=== PATIENT | male | born 1995 | race Caucasian/White ===

== ENCOUNTER 2024-09-30 12:27 | Emergency (ER) | payer BC ==
[~2024-09-30] VITALS: Ht 195.6 cm; Wt 148.3 kg
[~2024-09-30 12:27] MED LIST: NO HOME MEDS
[2024-09-30] MEDS ORDERED: SULF1TAB49 PO (14:24)
[2024-09-30] MEDS ORDERED: CHLO118L3 TOP (14:24)
[2024-09-30 14:38] VITALS: BP 156/80; PULSE 79; RESP 17; TEMP 98.6; O2SAT 99
== END 2024-09-30 14:39 | disposition home or self-care (01) ==
LOC: ER 12:27
DX: L02.31 Cutaneous abscess of buttock (principal)
CPT/HCPCS: 99283

== ENCOUNTER 2024-10-19 13:19 | Inpatient (IN) | payer BC ==
[2024-10-19] VITALS (15 sets, daily range): BP systolic 95–158; BP diastolic 55–97; PULSE 72–118; RESP 12–30; TEMP 97.5; O2SAT 89–99
[~2024-10-19] VITALS: Ht 195.6 cm; Wt 171.8 kg
[~2024-10-19 13:19] MED LIST changes: +CHLO118L3 TOP
[2024-10-19 14:33] LABS: BASOPHILS # (AUTO) 0.1 X10'3 (0-0.2); BASOPHILS % (AUTO) 0.5 % (0-1); EOSINOPHILS # (AUTO) 0.1 X10'3 (0-0.9); EOSINOPHILS % (AUTO) 0.3 % (0-6); HEMATOCRIT 46.9 % (42.0-52.0); HEMOGLOBIN 16.2 g/dl (14.0-17.9); LYMPHOCYTES # (AUTO) 2.4 X10'3 (1.1-4.8); LYMPHOCYTES % (AUTO) 12.2 % (21-51); MEAN CORPUSCULAR HEMOGLOBIN 28.9 PG (27.0-31.0); MEAN CORPUSCULAR HGB CONC 34.4 g/dL (33.0-36.5); MEAN PLATELET VOLUME 7.7 FL (7.4-10.4); MONOCYTES # (AUTO) 1.7 X10'3 (0-0.9); MONOCYTES % (AUTO) 8.5 % (2-12); NEUTROPHILS # (AUTO) 15.4 X10'3 (1.8-7.7); NEUTROPHILS % (AUTO) 78.5 % (42-75); PLATELET COUNT 349 X10'3 (140-440); RED BLOOD COUNT 5.59 X10'6 (4.70-6.10); WHITE BLOOD COUNT 19.6 X10'3 (4.5-11.0)
[2024-10-19 14:41] LABS: ALBUMIN 3.9 G/DL (3.4-5.0); ANION GAP 13 (8-16); BLOOD UREA NITROGEN 9 MG/DL (7-18); BUN/CREATININE RATIO 11.3 (10.0-20.0); CALCIUM 8.8 MG/DL (8.5-10.1); CHLORIDE 98 MMOL/L (99-107); GLUCOSE 361 MG/DL (70-104); POTASSIUM 4.1 MMOL/L (3.5-5.1); SODIUM 133 MMOL/L (135-145); TOTAL CARBON DIOXIDE 22.5 MMOL/L (24-32); eCRCL 169 ML/MIN; eGFR > 90 ML/MIN
[2024-10-19] MEDS: acetaminophen 325mg tablet PO ONE (14:50)
[2024-10-19] MEDS: acetaminophen 1,000mg/100ml IV 100 ML IV ONE (14:55)
[2024-10-19] MEDS ORDERED: iohexol 300mg/ml 100ml inj. ONE (15:21)
[2024-10-19] MEDS: piperacillin/tazo 3.375gm/50ml 50 ML IV ONE (16:14)
[2024-10-19] MEDS: normal saline 1000ML IV soln IV ONE (16:21)
[2024-10-19] MEDS: vancomycin/NS 1 GM ADD-VANTAGE 250 ML X 1 DOSE IV ONE (17:02)
[2024-10-19] MEDS ORDERED: ondansetron/PF 4mg/2ml inj IV PRN (17:10)
[2024-10-19] MEDS ORDERED: morphine 2 MG/ML inj. syringe IV PRN ×2 (17:10→19:55)
[2024-10-19] MEDS ORDERED: acetaminophen 325mg tablet PO PRN ×2 (17:10)
[2024-10-19] MEDS ORDERED: mag hydrox/Alum hydrox/simeth 30ml oral suspension PO PRN (17:10)
[2024-10-19 17:56] LABS: HEMOGLOBIN A1C 10.5 % (4.5-6.2)
[2024-10-19 18:18] LABS: PRO BRAIN NATRIURETIC PEPTIDE 34 PG/ML (0-125)
[2024-10-19] MEDS ORDERED: sevoflurane 250ml liquid IH ONE (18:18)
[2024-10-19] MEDS ORDERED: fentaNYL/PF 50MCG/1 ML 2ML syringe ONE ×2 (18:20→18:39)
[2024-10-19] MEDS ORDERED: midazolam 1 mg/ML 2ml injection ONE (18:22)
[2024-10-19] MEDS ORDERED: propofol inj 20 ML IV ONE ×2 (19:10)
[2024-10-19] MEDS ORDERED: naloxone 0.4 mg/ml inj IV PRN (19:20)
[2024-10-19] MEDS ORDERED: HYDROmorphone inj. 0.5 MG/0.5 ML DISP.SYRIN IV PRN (19:25)
[2024-10-19] MEDS: morphine 4 MG/ML inj SYRINge IV PRN (20:00)
[2024-10-19] MEDS ORDERED: VANCOMYCIN 1GM 200ML H20 (PEG) 200 ML IV SCH (20:00)
[2024-10-19] MEDS: docusate sod 100mg capsule PO SCH (20:46)
[2024-10-19] MEDS: normal saline 1000ml 1,000 ML IV SCH (22:21)
[2024-10-19] MEDS: HYDROcodone/acetaminophen 5mg/325mg tablet PO PRN (22:31)
[2024-10-19] MEDS ORDERED: dextrose 50%-water 50ml dispensing syringe IV PRN ×2 (23:05)
[2024-10-19] MEDS ORDERED: glucagon, human recombinant 1mg kit SUBCUT PRN (23:05)
[2024-10-19] MEDS ORDERED: DEXTROSE 15 GM of carb/4 tabs (each vial/BOTTLE has 4 tablets) PO PRN ×2 (23:05)
[2024-10-20] VITALS (8 sets, daily range): BP systolic 128–143; BP diastolic 74–81; PULSE 100–112; RESP 13–25; TEMP 97.4–98.5; O2SAT 95–98
[2024-10-20] MEDS: vancomycin/NS 1 GM ADD-VANTAGE 250 ML IV SCH (00:21)
[2024-10-20] MEDS: insulin glargine (Lantus) pen - multi-dose SQ SCH ×2 (00:35→22:12)
[2024-10-20] MEDS: piperacillin/tazo 4.5gm/100ml 100 ML IV SCH (02:18)
[2024-10-20 07:02] LABS: BASOPHILS # (AUTO) 0.1 X10'3 (0-0.2); BASOPHILS % (AUTO) 0.3 % (0-1); EOSINOPHILS % (AUTO) 0.1 % (0-6); HEMATOCRIT 38.1 % (42.0-52.0); HEMOGLOBIN 13.1 g/dl (14.0-17.9); LYMPHOCYTES # (AUTO) 2.9 X10'3 (1.1-4.8); LYMPHOCYTES % (AUTO) 13.7 % (21-51); MEAN CORPUSCULAR HEMOGLOBIN 28.8 PG (27.0-31.0); MEAN CORPUSCULAR HGB CONC 34.4 g/dL (33.0-36.5); MEAN CORPUSCULAR VOLUME 83.8 FL (78-98); MEAN PLATELET VOLUME 7.9 FL (7.4-10.4); MONOCYTES # (AUTO) 2.1 X10'3 (0-0.9); MONOCYTES % (AUTO) 9.7 % (2-12); NEUTROPHILS # (AUTO) 16.4 X10'3 (1.8-7.7); NEUTROPHILS % (AUTO) 76.2 % (42-75); PLATELET COUNT 303 X10'3 (140-440); RED BLOOD COUNT 4.55 X10'6 (4.70-6.10); RED CELL DISTRIBUTION WIDTH 12.8 % (11.5-14.5); WHITE BLOOD COUNT 21.5 X10'3 (4.5-11.0)
[2024-10-20 07:06] LABS: ALBUMIN 2.9 G/DL (3.4-5.0); ANION GAP 11 (8-16); BLOOD UREA NITROGEN 10 MG/DL (7-18); BUN/CREATININE RATIO 12.5 (10.0-20.0); CALCIUM 8.1 MG/DL (8.5-10.1); CHLORIDE 100 MMOL/L (99-107); GLUCOSE 267 MG/DL (70-104); POTASSIUM 3.8 MMOL/L (3.5-5.1); SODIUM 134 MMOL/L (135-145); TOTAL CARBON DIOXIDE 22.8 MMOL/L (24-32); eCRCL 169 ML/MIN; eGFR > 90 ML/MIN
[2024-10-20] MEDS: INSULIN LISPRO 100 UNIT/ML INSULN.PEN MULTI-DOSE SQ SCH ×2 (08:33→16:52)
[2024-10-20] MEDS: FLU VACC TS2024-25(6MOS UP)/PF 45 MCG/0.5 ML SYRINGE IMVAC ONE (10:57)
[2024-10-20] MEDS: HYDROcodone/acetaminophen 10/325mg tab PO PRN (11:08)
[2024-10-20] MEDS ORDERED: lactose-reduced food (Ensure High Protein) 237ml bottle PO SCH (12:30)
[2024-10-20] MEDS ORDERED: DEXTROSE 15 GM of carb/4 tabs (each vial/BOTTLE has 4 tablets) PO PRN ×2 (13:40)
[2024-10-20] MEDS ORDERED: glucagon, human recombinant 1mg kit SUBCUT PRN (13:40)
[2024-10-20] MEDS ORDERED: dextrose 50%-water 50ml dispensing syringe IV PRN ×2 (13:40)
[2024-10-20] MEDS: morphine 2 MG/ML inj. syringe IV PRN (15:42)
[2024-10-20] MEDS: magnesium hydroxide 30ml (MOM) UD suspension PO PRN (15:46)
[2024-10-20] MEDS: VANCOMYCIN LEVEL IV ONE (16:42)
[2024-10-20] MEDS: JUVEN Smoothie Arginine/Glut./Ca2+Bmb (Juven 19.3pkt) 240ml cup PO SCH (18:13)
[2024-10-20] MEDS: lactose-reduced food (Ensure High Protein) 237ml bottle PO SCH (18:30)
[2024-10-21] VITALS (8 sets, daily range): BP systolic 130–155; BP diastolic 74–96; PULSE 89–103; RESP 16–24; TEMP 96.6–97.8; O2SAT 95–99
[2024-10-21] MEDS: Dakins solution (1/4 strength) 473ml solution TP SCH (00:09)
[2024-10-21] MEDS: vancomycin/NS 1 GM ADD-VANTAGE 250 ML IV SCH (07:00)
[2024-10-21 07:25] LABS: BASOPHILS % (AUTO) 0.2 % (0-1); EOSINOPHILS # (AUTO) 0.1 X10'3 (0-0.9); HEMATOCRIT 35.9 % (42.0-52.0); HEMOGLOBIN 12.3 g/dl (14.0-17.9); LYMPHOCYTES # (AUTO) 2.7 X10'3 (1.1-4.8); LYMPHOCYTES % (AUTO) 20.9 % (21-51); MEAN CORPUSCULAR HEMOGLOBIN 29.3 PG (27.0-31.0); MEAN CORPUSCULAR HGB CONC 34.1 g/dL (33.0-36.5); MEAN CORPUSCULAR VOLUME 85.8 FL (78-98); MEAN PLATELET VOLUME 7.6 FL (7.4-10.4); MONOCYTES # (AUTO) 1.4 X10'3 (0-0.9); MONOCYTES % (AUTO) 10.6 % (2-12); NEUTROPHILS # (AUTO) 8.8 X10'3 (1.8-7.7); NEUTROPHILS % (AUTO) 67.3 % (42-75); PLATELET COUNT 304 X10'3 (140-440); RED BLOOD COUNT 4.19 X10'6 (4.70-6.10); RED CELL DISTRIBUTION WIDTH 12.8 % (11.5-14.5); WHITE BLOOD COUNT 13.1 X10'3 (4.5-11.0)
[2024-10-21 07:55] LABS: ALBUMIN 2.5 G/DL (3.4-5.0); ANION GAP 12 (8-16); BLOOD UREA NITROGEN 9 MG/DL (7-18); CALCIUM 7.8 MG/DL (8.5-10.1); CHLORIDE 101 MMOL/L (99-107); GLUCOSE 206 MG/DL (70-104); POTASSIUM 3.7 MMOL/L (3.5-5.1); SODIUM 133 MMOL/L (135-145); TOTAL CARBON DIOXIDE 20.4 MMOL/L (24-32); eCRCL 225 ML/MIN; eGFR > 90 ML/MIN
[2024-10-21] MEDS: insulin glargine (Lantus) pen - multi-dose SQ SCH (23:12)
[2024-10-22] VITALS (7 sets, daily range): BP systolic 118–139; BP diastolic 71–94; PULSE 81–96; RESP 11–28; TEMP 97.1–99.3; O2SAT 97–100
[2024-10-22] MEDS: VANCOMYCIN LEVEL IV ONE (06:30)
[2024-10-22 07:48] LABS: BASOPHILS % (AUTO) 0.5 % (0-1); EOSINOPHILS # (AUTO) 0.2 X10'3 (0-0.9); EOSINOPHILS % (AUTO) 1.7 % (0-6); LYMPHOCYTES # (AUTO) 2.3 X10'3 (1.1-4.8); LYMPHOCYTES % (AUTO) 25.2 % (21-51); MEAN CORPUSCULAR HEMOGLOBIN 29.7 PG (27.0-31.0); MEAN CORPUSCULAR HGB CONC 35.2 g/dL (33.0-36.5); MEAN CORPUSCULAR VOLUME 84.5 FL (78-98); MEAN PLATELET VOLUME 7.2 FL (7.4-10.4); MONOCYTES # (AUTO) 0.8 X10'3 (0-0.9); MONOCYTES % (AUTO) 9.3 % (2-12); NEUTROPHILS # (AUTO) 5.8 X10'3 (1.8-7.7); NEUTROPHILS % (AUTO) 63.3 % (42-75); PLATELET COUNT 334 X10'3 (140-440); RED BLOOD COUNT 4.03 X10'6 (4.70-6.10); RED CELL DISTRIBUTION WIDTH 12.7 % (11.5-14.5); WHITE BLOOD COUNT 9.1 X10'3 (4.5-11.0)
[2024-10-22 07:56] LABS: ALBUMIN 2.3 G/DL (3.4-5.0); ANION GAP 9 (8-16); BLOOD UREA NITROGEN 8 MG/DL (7-18); BUN/CREATININE RATIO 15.4 (10.0-20.0); CALCIUM 7.9 MG/DL (8.5-10.1); CHLORIDE 103 MMOL/L (99-107); CREATININE 0.52 MG/DL (0.60-1.10); GLUCOSE 202 MG/DL (70-104); POTASSIUM 3.4 MMOL/L (3.5-5.1); SODIUM 135 MMOL/L (135-145); TOTAL CARBON DIOXIDE 22.9 MMOL/L (24-32); VANCOMYCIN,TROUGH 5.5 ug/mL (10.0-20.0); eCRCL 259 ML/MIN; eGFR > 90 ML/MIN
[2024-10-22] MEDS ORDERED: magnesium Cl slow-release 64mg tablet PO PRN (10:55)
[2024-10-22] MEDS ORDERED: potassium Cl 40MEQ/1/2NS 520ml 520 ML IV PRN (10:55)
[2024-10-22] MEDS ORDERED: magnesium sulf-water 4G/100mL 100 ML IV PRN (10:55)
[2024-10-22] MEDS ORDERED: magnesium sulf-water 2g/50mL 50 ML IV PRN (10:55)
[2024-10-22] MEDS ORDERED: potassium Cl 20 mEq SR tablet PO PRN (10:55)
[2024-10-22] MEDS: potassium Cl 20 mEq SR tablet PO PRN (11:52)
[2024-10-22 12:37] LABS: MAGNESIUM 1.8 MG/DL (1.5-2.4); POTASSIUM 3.4 MMOL/L (3.5-5.1)
[2024-10-22] MEDS: VANCOMYCIN/WATER FOR INJ (PEG) 1.5GM/300 ML IVPB IV SCH (13:32)
[2024-10-22] MEDS: K and/or MAG REPLACEMENT MC SCH (20:00)
[2024-10-23 02:00] VITALS: BP 134/72; PULSE 83; RESP 21; TEMP 97.8; O2SAT 99
[2024-10-23 06:00] VITALS: BP 145/86; PULSE 79; RESP 20; O2SAT 98
[2024-10-23] MEDS: VANCOMYCIN LEVEL IV ONE (07:30)
[2024-10-23 07:48] LABS: BASOPHILS # (AUTO) 0.1 X10'3 (0-0.2); BASOPHILS % (AUTO) 0.8 % (0-1); EOSINOPHILS # (AUTO) 0.2 X10'3 (0-0.9); EOSINOPHILS % (AUTO) 2.2 % (0-6); HEMATOCRIT 33.7 % (42.0-52.0); HEMOGLOBIN 11.5 g/dl (14.0-17.9); LYMPHOCYTES # (AUTO) 2.7 X10'3 (1.1-4.8); LYMPHOCYTES % (AUTO) 32.6 % (21-51); MEAN CORPUSCULAR HEMOGLOBIN 28.8 PG (27.0-31.0); MEAN CORPUSCULAR HGB CONC 34.2 g/dL (33.0-36.5); MEAN CORPUSCULAR VOLUME 84.3 FL (78-98); MONOCYTES # (AUTO) 0.8 X10'3 (0-0.9); MONOCYTES % (AUTO) 10.2 % (2-12); NEUTROPHILS # (AUTO) 4.4 X10'3 (1.8-7.7); NEUTROPHILS % (AUTO) 54.2 % (42-75); PLATELET COUNT 405 X10'3 (140-440); RED CELL DISTRIBUTION WIDTH 12.7 % (11.5-14.5); WHITE BLOOD COUNT 8.2 X10'3 (4.5-11.0)
[2024-10-23 08:08] LABS: ALBUMIN 2.4 G/DL (3.4-5.0); ANION GAP 7 (8-16); BLOOD UREA NITROGEN 7 MG/DL (7-18); BUN/CREATININE RATIO 10.9 (10.0-20.0); CALCIUM 8.1 MG/DL (8.5-10.1); CHLORIDE 105 MMOL/L (99-107); CREATININE 0.64 MG/DL (0.60-1.10); GLUCOSE 199 MG/DL (70-104); MAGNESIUM 1.8 MG/DL (1.5-2.4); POTASSIUM 3.7 MMOL/L (3.5-5.1); SODIUM 136 MMOL/L (135-145); TOTAL CARBON DIOXIDE 24.4 MMOL/L (24-32); eCRCL 211 ML/MIN; eGFR > 90 ML/MIN
[2024-10-23 11:00] VITALS: BP 126/73; PULSE 85; RESP 18; TEMP 97.7; O2SAT 95
[2024-10-23] MEDS: vancomycin/NS 1 GM ADD-VANTAGE 250 ML IV SCH (14:27)
[2024-10-23 15:00] VITALS: BP 143/67; PULSE 86; RESP 17; TEMP 98.2; O2SAT 98
[2024-10-23 18:00] VITALS: BP 146/76; PULSE 94; RESP 20; TEMP 98.1; O2SAT 98
[2024-10-23 22:00] VITALS: BP 149/104; PULSE 84; RESP 15; TEMP 96.4; O2SAT 98
[2024-10-24 02:00] VITALS: BP 157/85; PULSE 71; RESP 18; TEMP 96.5; O2SAT 95
[2024-10-24 06:00] VITALS: BP 157/97; PULSE 76; RESP 14; TEMP 96.7; O2SAT 99
[2024-10-24 07:48] LABS: BASOPHILS # (AUTO) 0.1 X10'3 (0-0.2); EOSINOPHILS # (AUTO) 0.2 X10'3 (0-0.9); EOSINOPHILS % (AUTO) 2.7 % (0-6); HEMATOCRIT 32.4 % (42.0-52.0); HEMOGLOBIN 11.2 g/dl (14.0-17.9); LYMPHOCYTES # (AUTO) 2.3 X10'3 (1.1-4.8); LYMPHOCYTES % (AUTO) 37.7 % (21-51); MEAN CORPUSCULAR HEMOGLOBIN 29.1 PG (27.0-31.0); MEAN CORPUSCULAR HGB CONC 34.6 g/dL (33.0-36.5); MEAN CORPUSCULAR VOLUME 84.1 FL (78-98); MEAN PLATELET VOLUME 6.8 FL (7.4-10.4); MONOCYTES # (AUTO) 0.5 X10'3 (0-0.9); MONOCYTES % (AUTO) 8.9 % (2-12); NEUTROPHILS # (AUTO) 3.1 X10'3 (1.8-7.7); NEUTROPHILS % (AUTO) 49.7 % (42-75); PLATELET COUNT 426 X10'3 (140-440); RED BLOOD COUNT 3.85 X10'6 (4.70-6.10); RED CELL DISTRIBUTION WIDTH 12.5 % (11.5-14.5); WHITE BLOOD COUNT 6.2 X10'3 (4.5-11.0)
[2024-10-24 08:00] VITALS: RESP 14; O2SAT 99
[2024-10-24 08:02] LABS: ALBUMIN 2.2 G/DL (3.4-5.0); ANION GAP 7 (8-16); BLOOD UREA NITROGEN 7 MG/DL (7-18); BUN/CREATININE RATIO 11.9 (10.0-20.0); CALCIUM 8.2 MG/DL (8.5-10.1); CHLORIDE 105 MMOL/L (99-107); CREATININE 0.59 MG/DL (0.60-1.10); GLUCOSE 235 MG/DL (70-104); MAGNESIUM 1.7 MG/DL (1.5-2.4); SODIUM 136 MMOL/L (135-145); TOTAL CARBON DIOXIDE 23.7 MMOL/L (24-32); VANCOMYCIN,TROUGH 12.7 ug/mL (10.0-20.0); eCRCL 229 ML/MIN; eGFR > 90 ML/MIN
[2024-10-24] MEDS: VANCOMYCIN LEVEL IV ONE (08:29)
[2024-10-24 11:00] VITALS: BP 164/85; PULSE 94; RESP 20; TEMP 96.8; O2SAT 98
[2024-10-24 15:00] VITALS: BP 155/89; PULSE 90; RESP 21; TEMP 97.8; O2SAT 98
== END 2024-10-24 19:10 | DRG 853 ==
LOC: ER 13:20 → ED HOLD 17:14 → ORTHO 4S 20:24 → PCU 3S 10-20 17:27
PROVIDERS: ADMIT Internal Medicine; ATTEND Internal Medicine
PROC: BW2G1ZZ Computerized Tomography (CT Scan) of Pelvic Region using Low Osmolar Contrast (ICD-10-PCS; 2024-10-19)
PROC: 0JBB0ZZ Excision of Perineum Subcutaneous Tissue and Fascia, Open Approach (ICD-10-PCS; principal; 2024-10-19 18:18)
PROC: 05HF33Z Insertion of Infusion Device into Left Cephalic Vein, Percutaneous Approach (ICD-10-PCS; 2024-10-24)
DX: A41.9 Sepsis, unspecified organism (principal); M72.6 Necrotizing fasciitis; E11.52 Type 2 diabetes mellitus with diabetic peripheral angiopathy with gangrene; Z68.41 Body mass index [BMI] 40.0-44.9, adult; L02.31 Cutaneous abscess of buttock; E66.01 Morbid (severe) obesity due to excess calories; N49.3 Fournier gangrene
CPT/HCPCS: 99291; Z7506; Z7508; 36410; 36415; 72193; 76870; 76937; 80048; 80202; 82948; 83036; 83605; 83735; 83880; 84132; 84145; 85025; 87040; 87081; 93971; 93976; 97116; 97161; 97530; A4615; A4618; A6253; A6260; A6446; A6449; A7000; C1751; G0378; J1815; J2003; J2250; J2270; J2543; J2704; J3010; J3370; J3372; J7030; J7120; Q9967